=== PATIENT | male | born 1945 | race Caucasian/White ===

== ENCOUNTER 2017-04-29 05:45 | Inpatient (IN) | payer OTHER ==
[~2017-04-29] VITALS: Ht 175.3 cm; Wt 77.1 kg
[2017-04-29] MEDS ORDERED: LISI-209 PO (06:43)
[2017-04-29] MEDS ORDERED: FINA5TAB3 PO (06:43)
[2017-04-29] MEDS ORDERED: GABA-533 PO (06:43)
[2017-04-29] MEDS ORDERED: HYDR-1189 PO (06:43)
[2017-04-29] MEDS ORDERED: OXYC10TA71 PO (06:43)
[2017-04-29] MEDS ORDERED: CEFAZOLIN SOD 1 GM in D5W 50 ML IV ONE (07:00)
[2017-04-29] MEDS ORDERED: METOCLOPRAMIDE HCL 10 MG/2 ML VIAL IVP ONE (07:01)
[2017-04-29] MEDS ORDERED: MORPHINE SULFATE 10MG/10ML PF AMP EP ONE (07:01)
[2017-04-29] MEDS ORDERED: fentaNYL CITRATE/PF 100 MCG/2 ML AMP IVP ONE (07:01)
[2017-04-29] MEDS ORDERED: CEFAZOLIN 1 GM IVPB PREMIX 50 ML IV ONE (07:01)
[2017-04-29] MEDS ORDERED: DEXAMETHASONE SOD PHOSPHATE 4 MG/ML VIAL IVP ONE (07:01)
[2017-04-29] MEDS ORDERED: SEVOFLURANE 15 MIN GAS INH ONE (07:01)
[2017-04-29] MEDS ORDERED: PROPOFOL 200MG/ 20ML VIAL (DIPRIVAN) IV ONE (07:01)
[2017-04-29] MEDS ORDERED: MIDAZOLAM HCL 5 MG/5 ML VIAL IVP ONE (07:01)
[2017-04-29] MEDS ORDERED: LR 1,000 ML IV.SOLN IV ONE (07:01)
[2017-04-29] MEDS ORDERED: POLYMYXIN 500,000/BACIT.10,000 UNITS in NS IRR 1 L IR ONE (07:03)
[2017-04-29] MEDS ORDERED: LR 1,000 ML IV ONE (08:29)
[2017-04-29] MEDS ORDERED: ePHEDrine sulfate 50 MG/ML VIAL IVP PRN (08:30)
[2017-04-29] MEDS ORDERED: DIPHENHYDRAMINE INJ 50 MG/ML VIAL IVP PRN (08:30)
[2017-04-29] MEDS ORDERED: fentaNYL CITRATE/PF 100 MCG/2 ML AMP IVP PRN (08:30)
[2017-04-29] MEDS ORDERED: ONDANSETRON HCL 4 MG/2 ML VIAL IVP PRN ×2 (08:30)
[2017-04-29] MEDS ORDERED: KETOROLAC TROMETHAMINE 30 MG VIAL IM PRN (08:30)
[2017-04-29] MEDS ORDERED: NALOXONE HCL 0.4 MG/ML AMP (NARCAN) IVP PRN (08:30)
[2017-04-29] MEDS ORDERED: D5/0.45 NS 1,000 ML IV ONE (09:09)
[2017-04-29] MEDS ORDERED: BISACODYL 10 MG/SUPPOSITORY RC PRN (09:15)
[2017-04-29] MEDS ORDERED: ACETAMINOPHEN 325 MG TABLET PO PRN ×2 (09:15→11:00)
[2017-04-29 10:30] VITALS: BP_SYST 120
[2017-04-29 10:32] VITALS: BP_SYST 120
[2017-04-29] MEDS: MORPHINE SULFATE 10 MG/ML VIAL IM PRN ×3 (12:02→20:20)
[2017-04-29] MEDS: CEFAZOLIN 1 GM IVPB PREMIX 50 ML IV SCH ×2 (14:01→21:24)
[2017-04-29 16:29] VITALS: BP_SYST 106
[2017-04-29] MEDS: RIVAROXABAN 10 MG TABLET PO SCH (18:14)
[2017-04-29 20:02] VITALS: BP_SYST 134
[2017-04-29] MEDS ORDERED: DIPHENHYDRAMINE HCL 50 MG CAPSULE PO PRN (23:15)
[2017-04-29 23:29] VITALS: BP_SYST 124
[2017-04-29] MEDS: HYDROcodone/ACETAMIN 7.5-325 MG TAB PO PRN (23:31)
[2017-04-30] MEDS: MORPHINE SULFATE 10 MG/ML VIAL IM PRN ×2 (02:31→08:57)
[2017-04-30] MEDS ORDERED: KETOROLAC TROMETHAMINE 15 MG VIAL IVP ONE (03:30)
[2017-04-30 04:00] VITALS: BP_SYST 144
[2017-04-30] MEDS: HYDROcodone/ACETAMIN 7.5-325 MG TAB PO PRN ×4 (06:37→19:44)
[2017-04-30 07:43] VITALS: BP_SYST 144
[2017-04-30] MEDS ORDERED: HYDROmorphone 2 MG/ML VIAL IVP PRN (11:30)
[2017-04-30] MEDS ORDERED: HYDROmorphone 1 MG INJ. 1 MG/ML AMPUL IVP PRN (11:30)
[2017-04-30 11:35] LABS: BASOPHILS # (AUTO) 0.1 K/uL (0.0-0.2); BASOPHILS % (AUTO) 0.8 % (0.0-2.0); HEMATOCRIT 29.6 % (36-54); HEMOGLOBIN 10.1 g/dL (14.0-18.0); LYMPHOCYTES # (AUTO) 1.2 K/uL (1.0-5.5); LYMPHOCYTES % (AUTO) 7.8 % (20.5-51.5); MEAN CORPUSCULAR HEMOGLOBIN 32 pg (27-31); MEAN CORPUSCULAR HGB CONC 34 % (32-36); MEAN CORPUSCULAR VOLUME 94 fL (79.0-98.0); MONOCYTES # (AUTO) 1.5 K/uL (0.0-1.0); MONOCYTES % (AUTO) 9.8 % (1.7-9.3); NEUTROPHILS # (AUTO) 12.9 K/uL (1.8-7.7); NEUTROPHILS % (AUTO) 81.6 % (40.0-70.0); PLATELET COUNT (AUTO) 245 K/uL (130-430); RED BLOOD CELL COUNT(AUTO) 3.15 MIL/uL (4.2-6.2); RED CELL DISTRIBUTION WIDTH 12.1 % (9.0-15.0); WHITE BLOOD COUNT (AUTO) 15.7 K/uL (4.8-10.8)
[2017-04-30] MEDS ORDERED: DOXYCYCLINE HYCLATE 100 MG CAPSULE PO ONE (11:45)
[2017-04-30 11:49] LABS: ANION GAP 3 (5-15); CALCIUM 8.2 mg/dL (8.4-11.0); CHLORIDE 102 mmol/L (98-107); GLUCOSE 145 mg/dL (70-99); POTASSIUM 4.4 mmol/L (3.5-5.1); SODIUM SERUM 134 mmol/L (136-145); UREA NITROGEN, BLOOD 13 mg/dL (8-21)
[2017-04-30 11:50] LABS: ALANINE AMINOTRANSFERASE 14 U/L (12-78); ASPARTATE AMINOTRANSFERASE 17 U/L (10-37); CREATININE 0.91 mg/dL (0.55-1.30); TOTAL BILIRUBIN 0.9 mg/dL (0.0-1.0); TOTAL PROTEIN, SERUM 6.1 g/dL (6.4-8.3)
[2017-04-30 12:18] VITALS: BP_SYST 141
[2017-04-30] MEDS: GABAPENTIN 400 MG CAPSULE PO SCH ×3 (12:47→21:27)
[2017-04-30] MEDS ORDERED: MORPHINE 2 MG/ML INJ. SYRINGE IVP PRN (14:00)
[2017-04-30 16:06] VITALS: BP_SYST 157
[2017-04-30] MEDS: RIVAROXABAN 10 MG TABLET PO SCH (17:12)
[2017-04-30] MEDS: MORPHINE 2 MG/ML INJ. SYRINGE IVP PRN ×2 (17:13→21:26)
[2017-04-30] MEDS: DOXYCYCLINE HYCLATE 100 MG CAPSULE PO SCH (21:26)
[2017-04-30] MEDS: TEMAZEPAM 15 MG CAPSULE PO PRN (22:43)
[2017-05-01 00:17] VITALS: BP_SYST 143
[2017-05-01] MEDS: MORPHINE 2 MG/ML INJ. SYRINGE IVP PRN ×4 (02:57→20:17)
[2017-05-01] MEDS: HYDROcodone/ACETAMIN 7.5-325 MG TAB PO PRN ×4 (04:16→23:32)
[2017-05-01 05:43] VITALS: BP_SYST 158
[2017-05-01] MEDS: LISINOPRIL 5 MG TABLET PO SCH (09:42)
[2017-05-01] MEDS: FINASTERIDE 5 MG TABLET (PROSCAR) PO SCH (09:42)
[2017-05-01] MEDS: DOXYCYCLINE HYCLATE 100 MG CAPSULE PO SCH ×2 (09:42→20:10)
[2017-05-01] MEDS: GABAPENTIN 400 MG CAPSULE PO SCH ×4 (09:42→20:10)
[2017-05-01 12:05] VITALS: BP_SYST 149
[2017-05-01 16:15] VITALS: BP_SYST 144
[2017-05-01] MEDS: RIVAROXABAN 10 MG TABLET PO SCH (17:27)
[2017-05-01 20:00] VITALS: BP_SYST 132
[2017-05-01] MEDS: TEMAZEPAM 15 MG CAPSULE PO PRN (22:13)
[2017-05-02 00:38] VITALS: BP_SYST 115
[2017-05-02] MEDS: MORPHINE 2 MG/ML INJ. SYRINGE IVP PRN ×2 (03:40→08:02)
[2017-05-02] MEDS: HYDROcodone/ACETAMIN 7.5-325 MG TAB PO PRN ×3 (05:40→15:13)
[2017-05-02 05:53] VITALS: BP_SYST 130
[2017-05-02] MEDS: FINASTERIDE 5 MG TABLET (PROSCAR) PO SCH (09:41)
[2017-05-02] MEDS: DOXYCYCLINE HYCLATE 100 MG CAPSULE PO SCH (09:41)
[2017-05-02] MEDS: LISINOPRIL 5 MG TABLET PO SCH (09:42)
[2017-05-02] MEDS: GABAPENTIN 400 MG CAPSULE PO SCH ×2 (09:42→15:14)
[2017-05-02 11:20] LABS: BASOPHILS % (AUTO) 0.3 % (0.0-2.0); EOSINOPHILS # (AUTO) 0.1 K/uL (0.0-0.4); EOSINOPHILS % (AUTO) 0.9 % (0.0-4.0); HEMATOCRIT 27.4 % (36-54); HEMOGLOBIN 9.1 g/dL (14.0-18.0); LYMPHOCYTES # (AUTO) 1.2 K/uL (1.0-5.5); LYMPHOCYTES % (AUTO) 11.5 % (20.5-51.5); MEAN CORPUSCULAR HEMOGLOBIN 31 pg (27-31); MEAN CORPUSCULAR HGB CONC 33 % (32-36); MEAN CORPUSCULAR VOLUME 94 fL (79.0-98.0); MONOCYTES % (AUTO) 9.5 % (1.7-9.3); NEUTROPHILS # (AUTO) 8.3 K/uL (1.8-7.7); NEUTROPHILS % (AUTO) 77.8 % (40.0-70.0); PLATELET COUNT (AUTO) 235 K/uL (130-430); RED BLOOD CELL COUNT(AUTO) 2.92 MIL/uL (4.2-6.2); RED CELL DISTRIBUTION WIDTH 12.3 % (9.0-15.0); WHITE BLOOD COUNT (AUTO) 10.6 K/uL (4.8-10.8)
[2017-05-02 12:05] VITALS: BP_SYST 132
[2017-05-02 14:20] VITALS: BP_SYST 135
[2017-05-02 16:55] VITALS: BP_SYST 128
== END 2017-05-02 17:46 | DRG 470 ==
LOC: SMU 05:45
PROVIDERS: ADMIT Orthopaedic Surgery; ATTEND Orthopaedic Surgery
PROC: 0SRC0J9 Replacement of Right Knee Joint with Synthetic Substitute, Cemented, Open Approach (ICD-10-PCS; principal; 2017-04-29 07:30)
DX: M17.11 Unilateral primary osteoarthritis, right knee (principal); I10 Essential (primary) hypertension; N40.0 Benign prostatic hyperplasia without lower urinary tract symptoms; Z96.652 Presence of left artificial knee joint; Z88.2 Allergy status to sulfonamides; Z79.899 Other long term (current) drug therapy
CPT/HCPCS: 36415; 80053; 85025; 87081; 88305; 88311; 97039; 97110-GP; 97116-GP; 97530-GP; C1713; C1776; J0690; J1100; J1170; J1885; J2250; J2270; J2274; J2704; J2765; J3010; J7060; J7120; Q0163